=== PATIENT | female | born 1960 | race Asian ===

== ENCOUNTER 2022-08-09 04:47 | Emergency (ER) | payer BC, OTHER ==
[~2022-08-09] VITALS: Ht 157.5 cm; Wt 56.7 kg
[2022-08-09 05:17] VITALS: BP_SYST 120
--- NOTE | 2022-08-09 05:24 | NUR ---
Patient triaged and placed in waiting room. VSS and patient appears in no acute distress at this time. Accompanied by self, awaiting available bed, and MD notified of need for MSE.
--- NOTE | 2022-08-09 05:32 | NUR ---
ER in triage examining patient.
[2022-08-09 05:57] LABS: BILIRUBIN,URINE NEGATIVE (NEGATIVE); BLOOD, URINE 3+ (NEGATIVE); CLARITY/URINE SL CLOUDY (CLEAR); COLOR,URINE YELLOW (YELLOW); GLUCOSE,URINE NEGATIVE (NEGATIVE); KETONES,URINE NEGATIVE (NEGATIVE); LEUKOCYTE ESTERASE ,URINE 3+ (NEGATIVE); NITRITE, URINE NEGATIVE (NEGATIVE); PROTEIN URINE 2+ (NEGATIVE); UROBILINOGEN,URINE 0.2 (0.2-1.0)
[2022-08-09 06:05] LABS: BACTERIA,URINE MODERATE /HPF (None Seen); RBC,URINE 20-50 /HPF (0-3); WBC,URINE >100 /HPF (0-3)
[2022-08-09] MEDS ORDERED: cefTRIAXone 1 GM VIAL IM ONE (06:45)
[2022-08-09] MEDS ORDERED: ONDANSETRON 4 MG ODT TAB PO ONE (06:45)
[2022-08-09] MEDS ORDERED: PHENAZOPYRIDINE HCL 100 MG TABLET PO ONE (06:45)
[2022-08-09] MEDS ORDERED: ACETAMINOPHEN 500 MG TABLET PO ONE (06:45)
--- NOTE | 2022-08-09 06:50 | NUR ---
Patient refused ordered medicines. ER made aware
--- NOTE | 2022-08-09 06:51 | NUR ---
Patient refused blood draw and EKG. LUCIA SMITH made aware
[2022-08-09] MEDS ORDERED: CEFI200T PO (06:52)
[2022-08-09 07:00] VITALS: BP_SYST 121
--- NOTE | 2022-08-09 07:00 | NUR ---
Patient given written and verbal discharge instructions and verbalizes understanding. ER MD discussed with patient the result and care provided. Patient in stable condition. Rx of Cefixime sent to pharmacy of choice by ER MD. Patient educated on pain management and to follow up with PMD. Opportunity for questions provided and answered.
== END 2022-08-09 07:00 | disposition home or self-care (01) ==
LOC: SED 04:47
DX: N39.0 Urinary tract infection, site not specified (principal); R30.0 Dysuria; R35.0 Frequency of micturition; R11.0 Nausea; Z79.899 Other long term (current) drug therapy
CPT/HCPCS: 71045; 81000; 87086; 99284; Q0162